=== PATIENT | male | born 1950 | race Caucasian/White ===

== ENCOUNTER 2024-10-05 14:39 | Emergency (ER) | payer BC, MEDICARE ==
[2024-10-05] MEDS: fentaNYL 50 MCG/ML SDV IVPUSH ONE (17:39)
[2024-10-05] MEDS: fentaNYL 100 MCG/2 ML SDV NASBOTH ONE (19:18)
== END 2024-10-05 20:13 | disposition home or self-care (01) ==
LOC: JP.ED 14:39
DX: N32.0 Bladder-neck obstruction (principal); N13.30 Unspecified hydronephrosis; M62.89 Other specified disorders of muscle; E78.00 Pure hypercholesterolemia, unspecified; Z79.899 Other long term (current) drug therapy
CPT/HCPCS: 51702; 74176; 96374; 99284; J3010